=== PATIENT | female | born 1965 ===

== ENCOUNTER → 2019-08-13 | Outpatient (CLI) | payer SELFPAY | END | disposition home or self-care (01) | LOC: LAB SHORT 08:21 → LAB EV 08:21 | DX: J02.9 Acute pharyngitis, unspecified (principal) | CPT/HCPCS: 87081 ==

== ENCOUNTER → 2020-09-26 | Outpatient (CLI) | payer SELFPAY | LOC: LAB 19:08 → LAB SHORT 19:08 | PROVIDERS: Nurse Practitioner Family | DX: Z01.419 Encounter for gynecological examination (general) (routine) without abnormal findings (principal) | CPT/HCPCS: G0145 ==